=== PATIENT | female | born 1955 | race Caucasian/White ===

== ENCOUNTER → 2020-07-16 14:44 | Outpatient (CLI) | payer BC, SELFPAY ==
--- NOTE | ~2020-07-16 | MM_ITS ---
EXAMINATION: MM screening kee BI w ashly HISTORY: Screening TECHNIQUE: Craniocaudal and mediolateral oblique 3-D tomosynthesis images were obtained and synthetic 2-D images were generated. CAD analysis was submitted and interpreted. COMPARISON: Comparison to multiple prior studies sequentially, with oldest reviewed study dated 11/27. BREAST PARENCHYMAL COMPOSITION: There are scattered areas of fibroglandular density. FINDINGS: There is no evidence of suspicious mass, calcification, or architectural distortion to sugg est malignancy in either breast. There has been no suspicious interval change. IMPRESSION: 1. No mammographic evidence of malignancy. 2. Recommend routine screening mammography in one year. BI-RADS Category 1: Negative Reviewed, dictated and finalized at location A.
== END ==
PROVIDERS: Visit Provider Internal Medicine
DX: Z12.31 Encounter for screening mammogram for malignant neoplasm of breast (principal)
CPT/HCPCS: 77063; 77067

== ENCOUNTER 2020-11-25 15:33 | Outpatient (CLI) | payer BC, SELFPAY ==
--- NOTE | ~2020-11-25 | CT_ITS ---
EXAMINATION: CTA chest PE protocol DATE: 11/25/2020 17:53 INDICATION: Shortness of breath TECHNIQUE: Computed tomography angiography (CTA) of the chest was performed with 100 mL Omnipaque-350 intravenous contrast timed to evaluate the pulmonary arteries. Coronal maximum intensity projection 3D-reconstructions were created by the technologist. The dose-length product (DLP) was 319.71 mGy-cm. Automated exposure control and iterative reconstruction technique were employed. COMPARISON: CT, 11/13/2013 FINDINGS: The pulmonary arteries are well-opacified. No pulmonary embolism is identified. The lungs a re free of acute opacities. There is no pleural effusion or pneumothorax. No pathologically enlarged thoracic lymph nodes are identified. The heart size is normal. There is mild thoracic spondylosis. IMPRESSION: 1. No pulmonary embolism or acute cardiopulmonary abnormality. Reviewed, dictated and finalized at location A. IEW PROGRAMMER
[2020-11-25 16:01] LABS: Basophils Absolute Auto 0.1 K/mm3 (0.0-0.1); Basophils Percent Auto 0.6 % (0.2-1.2); Eosinophils Absolute Auto 0.3 K/mm3 (0-0.3); Eosinophils Percent Auto 2.2 % (0-4.4); Hemoglobin 15.6 g/dL (12.0-15.0); Immature Granulocyte Absolute 0.03 K/mm3 (0.00-0.031); Immature Granulocyte Percent A 0.3 % (0-0.5); Lymphocytes Absolute Auto 3.47 K/mm3 (0.9-3.2); Mean Corpuscular HGB Conc 33.9 g/dl (32-36); Mean Corpuscular Hemoglobin 30.4 pg (26-34); Mean Corpuscular Volume 89.5 fl (80-100); Mean Platelet Volume 9.8 fl (7.4-10.4); Monocytes Absolute Auto 0.7 K/mm3 (0.1-0.6); Monocytes Percent Auto 5.7 % (2.6-8.5); Neutrophils Absolute Auto 7.1 K/mm3 (1.3-6.7); Neutrophils Percent Auto 61.2 % (45.5-73.1); Platelet Count Result 418 k/mm3 (150-375); Red Blood Count 5.14 M/mm3 (4.2-5.4); Red Cell Distribution Width 12.1 % (11.5-14.5); White Blood Count 11.6 K/mm3 (4.5-10.0)
[2020-11-25 16:12] LABS: INR 0.9
[2020-11-25 16:19] LABS: Alanine Aminotransferase 19 U/L (4-35); Albumin Level 4.6 g/dL (3.5-5.1); Alkaline Phosphatase 72 U/L (38-126); Anion Gap 5 mmol/L (8-16); Aspartate Amino Transferase 24 U/L (14-36); Bilirubin,Total 1.2 mg/dL (0.2-1.3); Blood Urea Nitrogen 14 mg/dL (7-17); Calcium 9.4 mg/dL (8.4-10.2); Carbon Dioxide 32 mmol/L (22-30); Chloride 102 mmol/L (98-107); Estimated Glomerular Filt Rate > 60; Glucose 96 mg/dL (65-105); Potassium 3.6 mmol/L (3.4-5.0); Sodium 139 mmol/L (137-145)
[2020-11-25 16:29] LABS: Troponin I < 0.012 ng/mL (0.000-0.034)
== END 2020-11-25 15:34 | disposition home or self-care (01) ==
PROVIDERS: PCP Internal Medicine; Visit Provider Internal Medicine
DX: R06.00 Dyspnea, unspecified (principal); R07.81 Pleurodynia; I10 Essential (primary) hypertension; Z79.899 Other long term (current) drug therapy; R23.1 Pallor; R53.83 Other fatigue
CPT/HCPCS: 36415; 71275; 80053; 84484; 85025; 85610; Q9967

== ENCOUNTER 2020-12-09 07:20 | Outpatient (CLI) | payer BC, SELFPAY ==
--- NOTE | ~2020-12-09 | XR_ITS ---
XR UGIAC w small bowel DATE: 12/09/2020 08:51 INDICATION: Abdominal pain, weight loss TECHNIQUE: Air-contrast upper gastrointestinal series and serial images of the small bowel. Spot imag es of the terminal ileum. 3.5 minutes fluoroscopy time DAP: 28.878 78 images total COMPARISON: None FINDINGS: There is normal deglutition and esophageal peristalsis. No stricture, mucosal fold thickeni ng, ulceration or intraluminal mass lesion of the esophagus, stomach or small bowel. The terminal ile um appears normal. There is partial opacification of the normal caliber appendix. Incidentally noted is a transitional L5 lumbosacral vertebra with sacralization and pseudoarthrosis o n the right. IMPRESSION: Normal examination Reviewed, dictated and finalized at Location A. Reviewed, dictated and finalized at location A. NSED OPTICIAN IMPRESSION: Normal examination
--- NOTE | ~2020-12-09 | US_ITS ---
EXAMINATION: US abdomen complete EXAM DATE: 12/09/2020 07:58 INDICATION: R10.9 - Unspecified abdominal pain. TECHNIQUE: Multiple grayscale and Doppler images of the complete abdomen were obtained (by a technolo gist who performed the scan) and subsequently reviewed. There is no prior study for comparison. FINDINGS: The abdominal aorta is normal in caliber. Visualized portion IVC is patent. The pancreatic head a nd body are normal in appearance. The pancreatic tail is not visualized. Mildly echogenic liver parenchyma, hepatic steatosis. There are no focal liver lesions identified. There is no evidence of intrahepatic biliary duct dilation. Portal venous flow was seen in the hepa topedal, normal direction and has normal Doppler waveform. Common bile duct measures 5 mm, which is normal. The gallbladder wall is normal in thickness, with ex pected amount of distention. No sonographic evidence of pericholecystic fluid. There is some ringdo wn artifact, gallbladder adenomyomatosis. No cholelithiasis. Technologist performing exam reports more [place] did not demonstrate sonographic Vazquez's sign. Please note that this sign is less reliable in patients who have received pain medication. Right kidney: There is normal contour and echogenicity. It measures 9.5 x 4.8 x 5.4 centimeters. T here are no focal renal lesions identified. There is no hydronephrosis. Left kidney: There is normal contour and echogenicity. It measures 9.0 x 5.0 x 5.0 centimeters. Th ere are no focal renal lesions identified. There is no hydronephrosis. The spleen measures 8.5 centimeters and is morphologically normal. IMPRESSION: 1. Hepatic steatosis. 2. Gallbladder adenomyomatosis. Reviewed, dictated and finalized at location D. RMAN OF THE BOARD
== END 2020-12-09 07:21 | disposition home or self-care (01) ==
PROVIDERS: Family Provider Internal Medicine; PCP Internal Medicine; Visit Provider Internal Medicine
DX: R10.9 Unspecified abdominal pain (principal); R63.4 Abnormal weight loss; K76.0 Fatty (change of) liver, not elsewhere classified
CPT/HCPCS: 74246; 74248; 76700

== ENCOUNTER → 2021-08-17 16:39 | Outpatient (CLI) | payer OTHER, SELFPAY ==
--- NOTE | ~2021-08-17 | MM_ITS ---
EXAMINATION: MM screening kee BI w ashly HISTORY: Screening TECHNIQUE: Craniocaudal and mediolateral oblique 3-D tomosynthesis images were obtained and synthetic 2-D images were generated. CAD analysis was submitted and interpreted. COMPARISON: Comparison to multiple prior studies sequentially, with oldest reviewed study dated 12/24. BREAST PARENCHYMAL COMPOSITION: There are scattered areas of fibroglandular density. FINDINGS: There is no evidence of suspicious mass, calcification, or architectural distortion to sugg est malignancy in either breast. There has been no suspicious interval change. IMPRESSION: 1. No mammographic evidence of malignancy. 2. Recommend routine screening mammography in one year. BI-RADS Category 1: Negative Reviewed, dictated and finalized at location A.
== END ==
PROVIDERS: PCP Internal Medicine; Visit Provider Internal Medicine
DX: Z12.31 Encounter for screening mammogram for malignant neoplasm of breast (principal)
CPT/HCPCS: 77063; 77067

== ENCOUNTER 2021-09-28 00:29 | Day surgery (SDC) | payer OTHER, SELFPAY ==
[2021-09-16 08:34] VITALS: BMI 24.2
--- NOTE | 2021-09-25 14:28 | PM.HPGS ---
History of Present Illness History of Present Illness Consent: Risks, benefits, and alternatives have been discussed and questions answered. Patient agrees to proceed with procedure. Chief complaint: hx of colon polyps, neoplasm screening Narrative: Elizabeth Alejandro is a 66 year old female with a family history of colon cancer here for colon cancer screening. She did have a polyp removed about 5 years ago Review of Systems Review of Systems: All systems reviewed & are unremarkable except as noted in HPI and below PMFSH Past Medical History Medical History Abdominal pain Actinic keratosis Anxiety Benign essential hypertension BMI 24.0-24.9, adult Colon cancer screening Dizziness Encounter for preventive health examination Encounter for routine adult health examination without abnormal findings Fatigue Hematuria Hx of colonic polyps IBS (irritable bowel syndrome) Dumont's neuroma of right foot On shelter drug therapy Personal history of nicotine dependence Screening mammogram, encounter for Skin lesion SOB (shortness of breath) Stress at work Vitamin D deficiency Weight loss, unintentional Family History Family History Father Family history of cardiovascular disease Family history of heart disease in male family member before age 55 Mother Carcinoma of colon Social History Social History Smoking status: Former smoker Tobacco type: cigarettes Second hand tobacco smoke exposure: No Alcohol intake: never Substance use: never Substance use type: does not use Living arrangements: alone Gender identity (if verbalized by the patient): Female Spiritual care concerns: No Meds Home Medications and Allergies Home Medications Medication Instructions Recorded Confirmed Type mecobalamin (vitamin B12) 1,000 1,000 mcg SUBLINGUAL DAILY 10/15/20 09/16/21 History mcg disintegrating tablet,sublingual calcium carbonate 215 mg PO BID 09/16/21 09/16/21 History lisinopril-hydrochlorothiazide 1 tablet PO DAILY 09/16/21 09/16/21 History multivit with min-folic acid 1 tablet PO DAILY 09/16/21 09/16/21 History [Adult One Daily Multivitamin] Allergies Allergy/AdvReac Type Severity Reaction Status Date / Time No Known Drug Allergies Allergy Unknown Unknown Verified 09/28/21 07:36 Exam Resp: Auscultation: clear to auscultation bilaterally Cardio: Rate: regular rate Rhythm: regular rhythm GI: GI Palp: Yes Soft to palpation and No Tenderness to palpation present (GI) Assessment and Plan Assessment and plan (1) Colon cancer screening: Code(s): Z12.11 - Encounter for screening for malignant neoplasm of colon Status: Acute Assessment and Plan: Colonoscopy with possible biopsy or polypectomy or cautery or injection of substances.
--- NOTE | 2021-09-28 07:34 | P.PNAN_ITS ---
Anes - Initial Pre Proc Eval Procedure: Operation Date: 09/28/21 08:30 Proposed Procedures p Screening Colonoscopy - Willi Dinero MD Date/Time: 09/28/21 07:34 Surgeon: Willi Dinero MD Pre Op Diagnosis: hx of colon polyps, neoplasm screening Patient Data Age: 66 Gender: F Height: 1.68 m Weight: 68 kg Allergies Allergy/AdvReac Type Severity Reaction Status Date / Time No Known Drug Allergies Allergy Unknown Unknown Verified 09/28/21 07:36 Home Medications Medication Instructions Recorded Confirmed Type mecobalamin (vitamin B12) 1,000 1,000 mcg SUBLINGUAL DAILY 10/15/20 09/16/21 History mcg disintegrating tablet,sublingual calcium carbonate 215 mg PO BID 09/16/21 09/16/21 History lisinopril-hydrochlorothiazide 1 tablet PO DAILY 09/16/21 09/16/21 History multivit with min-folic acid 1 tablet PO DAILY 09/16/21 09/16/21 History [Adult One Daily Multivitamin] Patient hx anesthesia problems: none Family hx anesthesia problems: none Results Review: All pre-operative results and documents have been reviewed as part of the pre-operative evaluation. [facility] Past Medical History Medical History Abdominal pain Actinic keratosis Anxiety Benign essential hypertension BMI 24.0-24.9, adult Colon cancer screening Dizziness Encounter for preventive health examination Encounter for routine adult health examination without abnormal findings Fatigue Hematuria Hx of colonic polyps IBS (irritable bowel syndrome) Dumont's neuroma of right foot On custodial drug therapy Personal history of nicotine dependence Screening mammogram, encounter for Skin lesion SOB (shortness of breath) Stress at work Vitamin D deficiency Weight loss, unintentional Family History Family History Father Family history of cardiovascular disease Family history of heart disease in male family member before age 55 Mother Carcinoma of colon Social History Social History Smoking status: Former smoker Tobacco type: cigarettes Second hand tobacco smoke exposure: No Alcohol intake: never Substance use: never Substance use type: does not use Living arrangements: alone Gender identity (if verbalized by the patient): Female Spiritual care concerns: No Anes - Eval Final PreProcedure Day of Procedure 09/28/21 07:34 Patient weight: normal Heart: regular rate and rhythm Lungs: clear to auscultation and normal air movement Airway: Mallampati scale class II Neurological: alert and oriented Last oral intake: >/= 8 hours ASA classification: II Emergent: no Anesthetic plan: proceed Anesthesia type and monitoring: general GIVS Results Review: All pre-operative results and documents have been reviewed as part of the pre-operative evaluation. Informed Consent: The patient's anesthetic plan and its attendant risks and benefits were discussed with the patient/family/POA. Questions were solicited and answers provided to the satisfaction of the patient/family/POA.
[2021-09-28 07:37] VITALS: BP 125/68; PULSE 65; RESP 18; TEMP 36.6; O2SAT 99
[2021-09-28] MEDS: LACTATED RINGERS 1,000 ML 150 ML IV CONT (07:45)
[2021-09-28 08:32] VITALS: BP 127/65; PULSE 67; RESP 18; O2SAT 100
[2021-09-28 08:42] VITALS: BP 145/82; PULSE 70; RESP 19; O2SAT 100
== END 2021-09-28 08:58 | disposition home or self-care (01) ==
PROVIDERS: PCP Internal Medicine; Visit Provider Internal Medicine Gastroenterology
PROC: 0DJD8ZZ Inspection of Lower Intestinal Tract, Via Natural or Artificial Opening Endoscopic (ICD-10-PCS; CPT 45378; principal; 2021-09-28 08:30)
DX: Z12.11 Encounter for screening for malignant neoplasm of colon (principal); K63.5 Polyp of colon; Z80.0 Family history of malignant neoplasm of digestive organs; I10 Essential (primary) hypertension; K58.9 Irritable bowel syndrome, unspecified; E55.9 Vitamin D deficiency, unspecified; Z87.891 Personal history of nicotine dependence
CPT/HCPCS: 45380; 88305; J2704; J7120

== ENCOUNTER → 2022-06-01 10:53 | Outpatient (CLI) | payer MEDICARE, SELFPAY ==
--- NOTE | ~2022-06-01 | XR_ITS ---
EXAMINATION: XR hip RT 2V w AP pelvis INDICATION: Right hip pain TECHNIQUE: AP view of the pelvis and two views of the right hip are obtained. COMPARISON: None available FINDINGS: Bone alignment is normal. There is no fracture. There is mild osteoarthritis of the hips. M ild osteitis pubis is also noted. IMPRESSION: 1. No acute osseous abnormality. Reviewed, dictated and finalized at location B.
--- NOTE | ~2022-06-01 | XR_ITS ---
EXAMINATION: XR lumbar spine 2-3V DATE: 06/01/2022 11:23 INDICATION: Right leg pain, sciatica TECHNIQUE: Anteroposterior and lateral views of the lumbar spine, and cone-down lateral view of the l umbosacral junction were obtained. COMPARISON: None. FINDINGS: There is a transitional S1 segment. There is no fracture, dislocation, or subluxation. Ther e is mild loss of intervertebral disc space height throughout the lumbar spine. The vertebral body he ights are maintained. Small degenerative osteophytes project from the anterior endplates of multiple vertebral bodies. There is moderate facet osteoarthritis of the lower lumbar spine. IMPRESSION: 1. Mild lumbar spondylosis without acute findings. Reviewed, dictated and finalized at location B.
--- NOTE | ~2022-06-01 | XR_ITS ---
XR knee RT 3V 06/01/2022 11:23 Indication: Right knee pain Procedure: 3 views right knee Comparison: No prior studies for comparison. Findings: No fracture, subluxation or dislocation. No significant joint effusion. There is mild chapman lofemoral compartment osteoarthritis. Impression: 1: Mild patellofemoral compartment osteoarthritis. Reviewed, dictated and finalized at location A. Impression: 1: Mild patellofemoral compartment osteoarthritis.
== END ==
PROVIDERS: PCP Internal Medicine; Visit Provider Internal Medicine
DX: M25.551 Pain in right hip (principal); M47.26 Other spondylosis with radiculopathy, lumbar region; M17.11 Unilateral primary osteoarthritis, right knee
CPT/HCPCS: 72100; 73502; 73562

== ENCOUNTER → 2022-12-01 14:17 | Outpatient (CLI) | payer MEDICARE, SELFPAY ==
--- NOTE | ~2022-12-01 | MM_ITS ---
EXAMINATION: MM screening kee BI w ashly HISTORY: Screening mammogram TECHNIQUE: Craniocaudal and mediolateral oblique 3-D tomosynthesis images were obtained and synthetic 2-D images were generated. CAD analysis was submitted and interpreted. COMPARISON: 08/17/2021, 07/16/2020, 12/25/2018 bilateral screening mammogram examinations BREAST PARENCHYMAL COMPOSITION: There are scattered areas of fibroglandular density. FINDINGS: There is no evidence of suspicious mass, calcification, or architectural distortion to sugg est malignancy in either breast. There has been no suspicious interval change. IMPRESSION: 1. No mammographic evidence of malignancy. 2. Recommend routine screening mammography in one year. BI-RADS Category 1: Negative Reviewed, dictated and finalized at location A. DATION MANAGER
== END ==
PROVIDERS: PCP Internal Medicine; Visit Provider Internal Medicine
DX: Z12.31 Encounter for screening mammogram for malignant neoplasm of breast (principal)
CPT/HCPCS: 77063; 77067

== ENCOUNTER → 2022-12-16 09:37 | Outpatient (CLI) | payer MEDICARE, SELFPAY ==
--- NOTE | ~2022-12-16 | DEXA_ITS ---
Bone Density Report Name: RAYA MAC Age: 67 Sex: Female Ethnicity: White Date of : 1955 Indication: postmenopausal; screening for osteoporosis; Referring Provider: LOLITA CARRANZA Study: Bone densitometry was performed. Exam Date: December 16, 2022 Accession number: [id number] Bone Density: Region BMD T-score Z-score Classification AP Spine (L3, L4) 1.148 0.4 2.5 Normal Femoral Neck (Left) 0.713 -1.2 0.4 Osteopenia Total Hip (Left) 0.862 -0.7 0.7 Normal Femoral Neck (Right) 0.719 -1.2 0.5 Osteopenia Total Hip (Right) 0.845 -0.8 0.6 Normal Total Hip Mean 0.854 -0.8 0.7 Normal World Health Organization criteria for BMD impression classify patients as: Normal (T-score at or above -1.0), Osteopenia (T-score between -1.0 and -2.5), or Osteoporosis (T-score at or below -2.5). 10-year Fracture Risk(1): Major Osteoporotic Fracture 8.9% Hip Fracture 0.9% Reported Risk Factors: [place] (), Neck BMD=0.719, BMI=26.0 (1) FRAX(R) Version 3.08. Fracture probability calculated for an untreated patient. Fracture probability may be lower if the patient has received treatment. Previous Exams: Region Exam Age BMD T-score BMD Change BMD Change Date g/cm2 vs Baseline vs Previous AP Spine(L3, L4) 12/16/2022 67 1.148 0.4 -0.075 0.032* 03/06/2016 60 1.116 0.1 -0.107 0.029* 12/24/2013 58 1.086 -0.1 -0.136 0.055* 10/05/2011 56 1.031 -0.6 -0.191 -0.030* 08/18/2009 53 1.061 -0.4 -0.161 -0.024* 08/07/2007 51 1.086 -0.1 -0.137 -0.137 05/08/2004 48 1.223 1.1 Total Hip(Left) 12/16/2022 67 0.862 -0.7 -0.025 -0.006 03/06/2016 60 0.868 -0.6 -0.020 0.054* 12/24/2013 58 0.814 -1.0 -0.073 0.035* 10/05/2011 56 0.780 -1.3 -0.108 -0.018 08/18/2009 53 0.797 -1.2 -0.090 -0.011 08/07/2007 51 0.809 -1.1 -0.079 -0.079 05/08/2004 48 0.888 -0.4 Total Hip(Right) 12/16/2022 67 0.845 -0.8 -0.019 -0.015 03/06/2016 60 0.860 -0.7 -0.005 0.043* 12/24/2013 58 0.817 -1.0 -0.047 0.077* 10/05/2011 56 0.740 -1.7 -0.125 -0.035* 08/18/2009 53 0.775 -1.4 -0.089 -0.041* 08/07/2007 51 0.816 -1.0 -0.049 -0.049 05/08/2004 48 0.865 -0.6 *Denotes significance at 95% confidenc
== END ==
PROVIDERS: PCP Internal Medicine; Visit Provider Internal Medicine
DX: Z78.0 Asymptomatic menopausal state (principal); M85.852 Other specified disorders of bone density and structure, left thigh; M85.851 Other specified disorders of bone density and structure, right thigh
CPT/HCPCS: 77080

== ENCOUNTER 2024-06-08 12:17 | Outpatient (CLI) | payer OTHER, SELFPAY ==
--- NOTE | ~2024-06-08 | MM_ITS ---
EXAMINATION: MM screening kee BI w ashly HISTORY: Screening TECHNIQUE: Craniocaudal and mediolateral oblique 3-D tomosynthesis images were obtained and synthetic 2-D images were generated. CAD analysis was submitted and interpreted. COMPARISON: Comparison to multiple prior studies sequentially, with oldest reviewed study dated 03/06. BREAST PARENCHYMAL COMPOSITION: Not dense: There are scattered areas of fibroglandular density. FINDINGS: There is no evidence of suspicious mass, calcification, or architectural distortion to sugg est malignancy in either breast. There has been no suspicious interval change. IMPRESSION: 1. No mammographic evidence of malignancy. 2. Recommend routine screening mammography in one year. BI-RADS Category 1: Negative Reviewed, dictated and finalized at location B.
== END 2024-06-08 12:18 ==
LOC: MICIMG 12:18
PROVIDERS: PCP Family Medicine; Visit Provider Family Medicine
DX: Z12.31 Encounter for screening mammogram for malignant neoplasm of breast (principal)
CPT/HCPCS: 77063; 77067

== ENCOUNTER 2024-11-05 14:20 | Outpatient (CLI) | payer OTHER, SELFPAY ==
--- NOTE | ~2024-11-05 | XR_ITS ---
XR cervical spine 4-5V Ordering provider: Temi Cool MD History: . M54.2 - Cervicalgia LT side . Comparison: None. FINDINGS: VERTEBRAL BODIES: Normal height and alignment. No visible fracture or subluxation. The dens is intact . Degenerative changes of the spine. DISK SPACES: Well maintained. Multilevel Facet joint disease. Multilevel uncovertebral joint osteoart hritic changes. PARASPINOUS SOFT TISSUES: No prevertebral soft tissue swelling. IMPRESSION: No acute osseous abnormality cervical spine. Reviewed, dictated and finalized at location A. TEGIC COMMUNICATIONS MANAGER
== END 2024-11-05 14:21 | disposition home or self-care (01) ==
LOC: MICIMG 14:21
PROVIDERS: PCP Family Medicine; Visit Provider Family Medicine
DX: M54.2 Cervicalgia (principal)
CPT/HCPCS: 72050

== ENCOUNTER 2025-06-11 12:14 | Outpatient (CLI) | payer OTHER, SELFPAY ==
--- NOTE | ~2025-06-11 | MM_ITS ---
EXAMINATION: MM screening kee BI w ashly HISTORY: Screening TECHNIQUE: Craniocaudal and mediolateral oblique 3-D tomosynthesis images were obtained and synthetic 2-D images were generated. CAD analysis was submitted and interpreted. COMPARISON: Comparison to multiple prior studies sequentially, with oldest reviewed study dated 12/25. BREAST PARENCHYMAL COMPOSITION: There are scattered areas of fibroglandular density. FINDINGS: There is no evidence of suspicious mass, calcification, or architectural distortion to sug gest malignancy in either breast. IMPRESSION: 1. No mammographic evidence of malignancy. 2. Recommend routine screening mammography in one year. BI-RADS Category 1: Negative Reviewed, dictated and finalized at location B.
== END 2025-06-11 12:15 | disposition home or self-care (01) ==
LOC: MICIMG 12:15
PROVIDERS: PCP Family Medicine; Visit Provider Family Medicine
DX: Z12.31 Encounter for screening mammogram for malignant neoplasm of breast (principal)
CPT/HCPCS: 77063; 77067